=== PATIENT | female | born 1970 | race Caucasian/White ===

== ENCOUNTER 2021-08-22 18:20 | Emergency (ER) | payer SELFPAY ==
[~2021-08-22] VITALS: Ht 160 cm; Wt 118.2 kg
[2021-08-22 18:33] VITALS: BP 176/118
[2021-08-22] MEDS ORDERED: naproxen 500mg tablet PO ONE (20:10)
[2021-08-22] MEDS ORDERED: HYDROcodone/acetaminophen 10/325mg tab PO ONE (20:10)
== END 2021-08-22 21:15 | disposition home or self-care (01) ==
LOC: ER 18:20
DX: S81.812A Laceration without foreign body, left lower leg, initial encounter (principal); Z79.899 Other long term (current) drug therapy; Z88.1 Allergy status to other antibiotic agents; Z88.5 Allergy status to narcotic agent; X58.XXXA Exposure to other specified factors, initial encounter; Y93.89 Activity, other specified; Y92.89 Other specified places as the place of occurrence of the external cause; Y99.8 Other external cause status
CPT/HCPCS: 29505; 29515; 99283